=== PATIENT | male | born 1960 | race Caucasian/White ===

== ENCOUNTER 2018-07-18 08:34 | Emergency (ER) | payer MEDICARE, BC ==
[~2018-07-18] VITALS: Ht 177.8 cm; Wt 40.9 kg
[~2018-07-18 08:34] MED LIST: ONDA8TAB9 PO
[2018-07-18] MEDS ORDERED: TETanus/Pertussis (Acell)/Diphther VAC/PF (Tdap-Adult) 0.5ml syringe IM ONE (09:35)
[2018-07-18] MEDS ORDERED: LIDOcaine 1% w/epiNEPHrine 1:200,000 30ml vial IM ONE (09:35)
[2018-07-18] MEDS ORDERED: AMOX-422 PO (09:41)
[2018-07-18 11:44] VITALS: BP 116/83
== END 2018-07-18 11:42 | disposition home or self-care (01) ==
LOC: ER 08:35
DX: S62.636A Displaced fracture of distal phalanx of right little finger, initial encounter for closed fracture (principal); S61.216A Laceration without foreign body of right little finger without damage to nail, initial encounter; S81.832A Puncture wound without foreign body, left lower leg, initial encounter; S80.812A Abrasion, left lower leg, initial encounter; G89.29 Other chronic pain; Z98.890 Other specified postprocedural states; Z88.8 Allergy status to other drugs, medicaments and biological substances; Z79.899 Other long term (current) drug therapy; W54.0XXA Bitten by dog, initial encounter; Y93.89 Activity, other specified; Y92.89 Other specified places as the place of occurrence of the external cause; Y99.8 Other external cause status
CPT/HCPCS: 12001; 73140; 90471; 90715; 99283; J3490

== ENCOUNTER 2019-01-27 12:45 | Inpatient (IN) | payer MEDICARE, BC ==
[~2019-01-27] VITALS: Ht 177.8 cm; Wt 90.7 kg
[~2019-01-27 12:45] MED LIST changes: +BACL20TA7 PO; +LORA1TAB PO; +MECL12.584 PO; +MIRT30TA8 PO; +ONDA8TAB12 PO; -ONDA8TAB9 PO
[2019-02-01] MEDS ORDERED: ATOR40TA PO (11:34)
[2019-02-01] MEDS ORDERED: VALP250C44 PO (11:34)
[2019-02-01] MEDS ORDERED: OXYC-150 PO (11:34)
[2019-02-01 11:45] LABS: BASOPHILS % (AUTO) 0.6 % (0-1); EOSINOPHILS # (AUTO) 0.2 X10'3 (0-0.9); EOSINOPHILS % (AUTO) 3.6 % (0-6); LYMPHOCYTES # (AUTO) 0.7 X10'3 (1.1-4.8); LYMPHOCYTES % (AUTO) 15.2 % (21-51); MEAN CORPUSCULAR HEMOGLOBIN 31.9 PG (27.0-31.0); MEAN CORPUSCULAR HGB CONC 33.5 g/dL (33.0-36.5); MEAN CORPUSCULAR VOLUME 95.3 FL (78-98); MEAN PLATELET VOLUME 6.6 FL (7.4-10.4); MONOCYTES # (AUTO) 0.5 X10'3 (0-0.9); MONOCYTES % (AUTO) 10.7 % (2-12); NEUTROPHILS # (AUTO) 3.4 X10'3 (1.8-7.7); NEUTROPHILS % (AUTO) 69.9 % (42-75); PRE OP HEMATOCRIT 39.7 % (42.0-52.0); PRE OP HEMOGLOBIN 13.3 g/dL (14.0-17.9); PRE OP PLATELET COUNT 202 X10'3 (140-440); RED BLOOD COUNT 4.16 X10'6 (4.70-6.10); RED CELL DISTRIBUTION WIDTH 14.8 % (11.5-14.5)
[2019-02-01 12:02] LABS: ALBUMIN 3.8 G/DL (3.4-5.0); ALBUMIN/GLOBULIN RATIO 1.1 (1.1-1.5); ALKALINE PHOSPHATASE 56 IU/L (46-116); BLOOD UREA NITROGEN 15 MG/DL (7-18); BUN/CREATININE RATIO 16.7 (5.4-32.0); CALCIUM 8.9 MG/DL (8.5-10.1); CHLORIDE 105 MMOL/L (99-107); PRE OP ALT 20 U/L (30-65); PRE OP ANION GAP 7 (8-16); PRE OP AST 14 U/L (10-37); PRE OP BILIRUB, TOTAL 0.6 MG/DL (0.0-1.0); PRE OP GLUCOSE 83 MG/DL (70-104); PRE OP POTASSIUM 4.1 MMOL/L (3.4-5.1); PRE OP SODIUM 142 MMOL/L (135-145); TOTAL CARBON DIOXIDE 29.9 MMOL/L (24-32); TOTAL PROTEIN 7.4 G/DL (6.4-8.2); eGFR 86 ML/MIN
[2019-02-06] MEDS ORDERED: TRAZ-219 PO (10:18)
[2019-02-07] MEDS ORDERED: FLO0.4C PO (14:23)
[2019-02-09] MEDS ORDERED: VALP250C3 PO (11:54)
[2019-02-10] VITALS (13 sets, daily range): BP systolic 11–142; BP diastolic 65–103
[2019-02-10] MEDS ORDERED: tranexamic acid inj. 900 MG in normal saline 100ml IV soln 100 ML IV ONE ×5 (10:00→23:00)
[2019-02-10] MEDS ORDERED: ringers solution, lacted 1,000 ML IV SCH ×2 (10:00→18:07)
[2019-02-10] MEDS ORDERED: cefazolin/dext.iso 2gm/100ml 100 ML IV ONE (10:00)
[2019-02-10] MEDS ORDERED: vancomycin inj 1,500 MG in normal saline 300ml IV soln IV ONE (10:00)
[2019-02-10] MEDS ORDERED: famotidine 20mg tablet PO ONE (10:00)
[2019-02-10] MEDS ORDERED: diazepam 5mg tablet PO ONE (11:30)
[2019-02-10] MEDS ORDERED: ROPIVAcaine 0.5% (5mg/ml) 30ml vial ONE (16:06)
[2019-02-10] MEDS ORDERED: ketorolac trometh. 30mg/ml inj. ONE (16:06)
[2019-02-10] MEDS ORDERED: fentaNYL/PF 50MCG/1 ML 2ML syringe ONE ×2 (16:11→17:42)
[2019-02-10] MEDS ORDERED: MIDAZolam 5mg/5ml vial ONE (16:11)
[2019-02-10] MEDS ORDERED: propofol inj 20 ML IV ONE (16:13)
[2019-02-10] MEDS ORDERED: LIDOcaine 1%/PF 5ML 10 MG/ML VIAL ONE (16:13)
[2019-02-10] MEDS ORDERED: rocuronium 10mg/ml inj IV ONE (16:13)
[2019-02-10] MEDS ORDERED: sevoflurane 250ml liquid IH ONE (16:30)
[2019-02-10] MEDS ORDERED: ketamine 50mg/5ml syringe ONE (17:47)
[2019-02-10] MEDS ORDERED: phenylephrine 10mg/ml inj. ONE (18:01)
[2019-02-10] MEDS ORDERED: ondansetron/PF 4mg/2ml inj ONE ×2 (18:01→19:49)
[2019-02-10] MEDS ORDERED: dexamethasone sod phosphate 4mg/ml inj. ONE (18:01)
[2019-02-10] MEDS ORDERED: neostigmine methylsulfate 1 MG/ML 10ml vial ONE (18:01)
[2019-02-10] MEDS ORDERED: ePHEDrine 50MG/ML INJ. ONE (18:01)
[2019-02-10] MEDS ORDERED: ROPIVAcaine 0.5% (5mg/ml) 30ml vial IJ ONE (18:01)
[2019-02-10] MEDS ORDERED: glycopyrrolate 0.2mg/ml inj ONE (18:01)
[2019-02-10] MEDS ORDERED: ketorolac trometh. 30mg/ml inj. IM ONE (18:02)
[2019-02-10] MEDS ORDERED: morphine 4 MG/ML inj SYRINge IV PRN ×2 (18:10)
[2019-02-10] MEDS ORDERED: ondansetron/PF 4mg/2ml inj IV PRN (18:10)
[2019-02-10] MEDS ORDERED: meperidine/PF 25mg/ml syringe IV PRN ×3 (18:10)
[2019-02-10] MEDS ORDERED: ROPIVAcaine 0.2% (10 MG/5 ML) BOLUS INJECTION INTERSCALE PRN (18:10)
[2019-02-10] MEDS ORDERED: proCHLORperazine 10 MG/2 ml inj IV PRN (18:10)
[2019-02-10] MEDS ORDERED: acetaminophen 325mg tablet PO PRN (19:40)
[2019-02-10] MEDS ORDERED: magnesium hydroxide 30ml (MOM) UD suspension PO PRN (19:40)
[2019-02-10] MEDS ORDERED: diphenhydrAMINE 25mg capsule PO PRN ×2 (19:40)
[2019-02-10] MEDS ORDERED: oxyCODONE IR 5mg (immed. release) tablet PO PRN (19:40)
[2019-02-10] MEDS ORDERED: LORazepam 1 MG tablet PO PRN (19:40)
[2019-02-10] MEDS ORDERED: ONDANSETRON HCL 8 MG PO PRN (19:40)
[2019-02-10] MEDS ORDERED: bisacodyl 10mg suppository rectal RC PRN (19:40)
[2019-02-10] MEDS ORDERED: HYDROmorphone 1 mg/ml syringe IV PRN (19:40)
--- NOTE | 2019-02-10 19:52 | NUR ---
Received from OR via , accompanied by Anesthesiologist DR JUNG and report given by Anesthesiolgist. AWAKE AND ALPA PAIN. VITALS STABLE. C/O NAUSEA WILL MEDICATE. DRESSING DI. UNABLE TO MOVE RUE. SIMPLE SLING TO RUE. FINGERS WARM AND PINK.
[2019-02-10] MEDS ORDERED: vancomycin/NS 1 GM ADD-VANTAGE 250 ML IV SCH (20:00)
--- NOTE | 2019-02-10 20:27 | NUR ---
Patient in room PAS IN 900. I have received report from MARY Pham and had the opportunity to ask questions and assume patient care.
--- NOTE | 2019-02-10 20:42 | NUR ---
Report called to receiving nurse. Transferred via BED Belongings . Special Issues communicated to receiving nurse. AWAKE AND ORIENTED. VITALS STABLE. DRESSING DI. TO ORTHO RM 4024B AT THIS TIME.
[2019-02-10] MEDS: sennosides 8.6mg tablet PO SCH (21:00)
[2019-02-10] MEDS: traZODone 50mg tablet PO SCH (21:00)
[2019-02-10] MEDS: ROPIVAcaine 0.2%/PF PUMP/bolus 550 ML INTERSCALE SCH (21:00)
[2019-02-10] MEDS: oxyCODONE IR 5mg (immed. release) tablet PO PRN (21:11)
[2019-02-10] MEDS: valproic acid 250mg capsule PO SCH (21:13)
[2019-02-10] MEDS: acetaminophen 325mg tablet PO SCH (21:14)
[2019-02-10] MEDS: mirtazapine 15mg tablet PO SCH (21:14)
[2019-02-10] MEDS: baclofen 10mg tablet PO SCH (21:15)
[2019-02-10] MEDS: atorvastatin 20mg tablet PO SCH (21:15)
[2019-02-10] MEDS: meclizine 12.5mg tablet PO SCH (21:15)
[2019-02-10] MEDS: potassium cl 20mEq in 1/2 NS 1,000 ML IV SCH (21:21)
[2019-02-11] VITALS (7 sets, daily range): BP systolic 114–158; BP diastolic 68–89
[2019-02-11] MEDS: ceFAZolin 1GM/D5W- ADD-VANTAGE 50 ML IV SCH ×2 (00:02→07:30)
[2019-02-11] MEDS: oxyCODONE IR 5mg (immed. release) tablet PO PRN ×6 (01:17→23:14)
[2019-02-11] MEDS: acetaminophen 325mg tablet PO SCH ×4 (01:18→20:00)
[2019-02-11] MEDS: potassium cl 20mEq in 1/2 NS 1,000 ML IV SCH ×3 (03:38→16:42)
[2019-02-11 04:34] LABS: BASOPHILS % (AUTO) 0.1 % (0-1); EOSINOPHILS % (AUTO) 0 % (0-6); HEMATOCRIT 34.4 % (42.0-52.0); HEMOGLOBIN 11.7 g/dl (14.0-17.9); LYMPHOCYTES # (AUTO) 0.4 X10'3 (1.1-4.8); LYMPHOCYTES % (AUTO) 4.6 % (21-51); MEAN CORPUSCULAR HEMOGLOBIN 32.3 PG (27.0-31.0); MEAN CORPUSCULAR HGB CONC 33.9 g/dL (33.0-36.5); MEAN CORPUSCULAR VOLUME 95.2 FL (78-98); MONOCYTES # (AUTO) 0.5 X10'3 (0-0.9); MONOCYTES % (AUTO) 6.7 % (2-12); NEUTROPHILS # (AUTO) 7.1 X10'3 (1.8-7.7); NEUTROPHILS % (AUTO) 88.6 % (42-75); PLATELET COUNT 151 X10'3 (140-440); RED BLOOD COUNT 3.61 X10'6 (4.70-6.10); RED CELL DISTRIBUTION WIDTH 14.7 % (11.5-14.5)
[2019-02-11 04:44] LABS: ANION GAP 6 (8-16); CHLORIDE 106 MMOL/L (99-107); SODIUM 139 MMOL/L (135-145); TOTAL CARBON DIOXIDE 27.2 MMOL/L (24-32)
--- NOTE | 2019-02-11 06:35 | NUR ---
Pt. used UQ pump Ropivacaine 0.2 % bolus 8 times self administrate for 12 h .His pain was down to 4 from 8 .We will continue with pt. care.
[2019-02-11] MEDS ORDERED: aspirin 325mg tablet ONE (07:25)
[2019-02-11] MEDS: tamsulosin 0.4mg capsule PO SCH (07:29)
[2019-02-11] MEDS: valproic acid 250mg capsule PO SCH ×2 (07:29→20:42)
[2019-02-11] MEDS: baclofen 10mg tablet PO SCH ×3 (07:29→20:44)
[2019-02-11] MEDS: meclizine 12.5mg tablet PO SCH ×3 (07:29→20:43)
[2019-02-11] MEDS: aspirin 325mg tablet PO SCH (07:30)
--- NOTE | 2019-02-11 08:21 | NUR ---
Pt. used UQ pump Ropivacaine 0.2 % bolus X1 TIME self administrate
[2019-02-11] MEDS: HYDROmorphone inj. 0.5 MG/0.5 ML DISP.SYRIN IV PRN ×3 (08:50→17:44)
--- NOTE | 2019-02-11 11:03 | NUR ---
Pt. used UQ pump Ropivacaine 0.2 % bolus X3 TIME self administrate
[2019-02-11] MEDS: ondansetron/PF 4mg/2ml inj IV PRN ×3 (15:03→21:38)
--- NOTE | 2019-02-11 15:21 | NUR ---
Pt. used UQ pump Ropivacaine 0.2 % bolus X2 TIME self administrate , CONT RATE INCREASED TO 14ML/HR
--- NOTE | 2019-02-11 18:34 | NUR ---
Patient in room ORTHO 4024. I have received report from Heather HERNANDEZ and had the opportunity to ask questions and assume patient care.
[2019-02-11] MEDS: atorvastatin 20mg tablet PO SCH (20:42)
[2019-02-11] MEDS: traZODone 50mg tablet PO SCH (20:43)
[2019-02-11] MEDS: mirtazapine 15mg tablet PO SCH (20:43)
[2019-02-11] MEDS: sennosides 8.6mg tablet PO SCH (20:43)
[2019-02-12] MEDS: acetaminophen 325mg tablet PO SCH ×3 (02:33→13:40)
[2019-02-12] MEDS: oxyCODONE IR 5mg (immed. release) tablet PO PRN ×3 (03:27→11:59)
[2019-02-12 06:00] VITALS: BP 129/79
--- NOTE | 2019-02-12 06:25 | NUR ---
Patient in room ORTHO 4024. I have received report from MARY Suazo and had the opportunity to ask questions and assume patient care.
--- NOTE | 2019-02-12 06:28 | NUR ---
Problems reprioritized. Patient report given, questions answered & plan of care reviewed with BRANDON HERNANDEZ.
[2019-02-12 07:36] LABS: BASOPHILS % (AUTO) 0.1 % (0-1); EOSINOPHILS % (AUTO) 0 % (0-6); HEMATOCRIT 32.2 % (42.0-52.0); HEMOGLOBIN 10.9 g/dl (14.0-17.9); LYMPHOCYTES # (AUTO) 0.6 X10'3 (1.1-4.8); LYMPHOCYTES % (AUTO) 5.7 % (21-51); MEAN CORPUSCULAR HEMOGLOBIN 32.1 PG (27.0-31.0); MEAN CORPUSCULAR HGB CONC 33.8 g/dL (33.0-36.5); MEAN CORPUSCULAR VOLUME 95.1 FL (78-98); MEAN PLATELET VOLUME 7.3 FL (7.4-10.4); MONOCYTES # (AUTO) 1.4 X10'3 (0-0.9); MONOCYTES % (AUTO) 13.6 % (2-12); NEUTROPHILS # (AUTO) 8.1 X10'3 (1.8-7.7); NEUTROPHILS % (AUTO) 80.6 % (42-75); PLATELET COUNT 135 X10'3 (140-440); RED BLOOD COUNT 3.39 X10'6 (4.70-6.10); RED CELL DISTRIBUTION WIDTH 15.1 % (11.5-14.5); WHITE BLOOD COUNT 10.1 X10'3 (4.5-11.0)
[2019-02-12] MEDS: meclizine 12.5mg tablet PO SCH ×2 (07:41→13:37)
[2019-02-12] MEDS: valproic acid 250mg capsule PO SCH (07:41)
[2019-02-12] MEDS: tamsulosin 0.4mg capsule PO SCH (07:41)
[2019-02-12] MEDS: aspirin 325mg tablet PO SCH (07:42)
[2019-02-12] MEDS: baclofen 10mg tablet PO SCH ×2 (07:42→13:37)
[2019-02-12 10:00] VITALS: BP 115/67
[2019-02-12] MEDS: ROPIVAcaine 0.2%/PF PUMP/bolus 550 ML INTERSCALE SCH (12:40)
--- NOTE | 2019-02-12 14:00 | NUR ---
Received discharge orders from Dr. Black. IV dc'd RFA with cannula intact. No redness/swelling at insertion site. Applied bandaid over insertion site. Instructed pt on post op instructions. Pt has follow up appt with Dr. Black in one week. Instructed pt on administration of Ropivicaine. Ropivicaine refilled by Pharmacy prior to pt discharge. Pt transported via w/c to private vehicle for discharge.
[2019-02-12] MEDS ORDERED: acetaminophen 325mg tablet PO PRN (19:40)
== END 2019-02-12 14:25 | disposition home or self-care (01) | DRG 483 ==
LOC: EDSTATUS 01-30 14:00 → PAS IN 02-10 10:33 → EDSTATUS 02-10 12:45 → ORTHO 4S 02-10 20:39
PROVIDERS: ADMIT Orthopaedic Surgery; ATTEND Orthopaedic Surgery
PROC: 0RPJ0JZ Removal of Synthetic Substitute from Right Shoulder Joint, Open Approach (ICD-10-PCS; 2019-02-10)
PROC: 0RRJ0JZ Replacement of Right Shoulder Joint with Synthetic Substitute, Open Approach (ICD-10-PCS; principal; 2019-02-10 16:20)
DX: M75.121 Complete rotator cuff tear or rupture of right shoulder, not specified as traumatic (principal); M75.01 Adhesive capsulitis of right shoulder; M19.011 Primary osteoarthritis, right shoulder; Z96.611 Presence of right artificial shoulder joint; G89.29 Other chronic pain
CPT/HCPCS: 36415; 80051; 80053; 82948; 85025; 87070; 87081; 93005; 97110; 97116; 97161; 97530; A4215; A4565; A4618; A7000; C1776; G0378; J0690; J0780; J1100; J1170; J1885; J2250; J2370; J2405; J2704; J2710; J2795; J3010; J3370; J3480; J3490; J7120; J8597

== ENCOUNTER 2019-02-07 13:42 | Emergency (ER) | payer MEDICARE, BC ==
[~2019-02-07] VITALS: Ht 188 cm; Wt 98.0 kg
[~2019-02-07 13:42] MED LIST changes: +ATOR40TA PO; +OXYC-150 PO; +TAMSULOSIN PO; +TRAZ-219 PO; +VALP250C44 PO
[2019-02-07] MEDS ORDERED: normal saline 1000ml 1,000 ML IV ONE ×2 (14:15)
[2019-02-07] MEDS ORDERED: FLO0.4C PO (14:23)
[2019-02-07 14:26] LABS: BASOPHILS % (AUTO) 0.5 % (0-1); EOSINOPHILS # (AUTO) 0.1 X10'3 (0-0.9); EOSINOPHILS % (AUTO) 2.3 % (0-6); HEMOGLOBIN 13.9 g/dl (14.0-17.9); LYMPHOCYTES # (AUTO) 0.6 X10'3 (1.1-4.8); MEAN CORPUSCULAR HEMOGLOBIN 32.2 PG (27.0-31.0); MEAN CORPUSCULAR HGB CONC 33.8 g/dL (33.0-36.5); MEAN CORPUSCULAR VOLUME 95.2 FL (78-98); MEAN PLATELET VOLUME 6.6 FL (7.4-10.4); MONOCYTES # (AUTO) 0.3 X10'3 (0-0.9); MONOCYTES % (AUTO) 7.2 % (2-12); NEUTROPHILS # (AUTO) 3.1 X10'3 (1.8-7.7); PLATELET COUNT 181 X10'3 (140-440); RED BLOOD COUNT 4.31 X10'6 (4.70-6.10); RED CELL DISTRIBUTION WIDTH 14.6 % (11.5-14.5); WHITE BLOOD COUNT 4.1 X10'3 (4.5-11.0)
[2019-02-07 14:41] LABS: CLARITY,URINE CLEAR (Clear); COLOR,URINE YELLOW (Yellow); GLUCOSE, URINE NEGATIVE (Neg); KETONES,URINE NEGATIVE (Neg); LEUKOCYTE ESTERASE ,URINE NEGATIVE (Neg); NITRITES, URINE NEGATIVE (Neg); OCCULT BLOOD,URINE NEGATIVE (Neg); PH,URINE 6.5 (4.8-8.0); PROTEIN,URINE NEGATIVE (Neg); UROBILINOGEN,URINE 0.2 E.U/dL (0.2-1.0)
[2019-02-07 14:43] LABS: UA COLLECTION TYPE URINAL
[2019-02-07 14:44] LABS: ALANINE AMINOTRANSFERASE 20 U/L (12-78); ALBUMIN 3.8 G/DL (3.4-5.0); ALKALINE PHOSPHATASE 57 IU/L (46-116); ANION GAP 6 (8-16); ASPARTATE AMINO TRANSFERASE 13 U/L (10-37); BILIRUBIN,TOTAL 0.6 MG/DL (0.1-1.0); BLOOD UREA NITROGEN 10 MG/DL (7-18); BUN/CREATININE RATIO 10.2 (5.4-32.0); CHLORIDE 105 MMOL/L (99-107); CREATININE 0.98 MG/DL (0.60-1.10); GLUCOSE 96 MG/DL (70-104); POTASSIUM 3.6 MMOL/L (3.5-5.1); SODIUM 143 MMOL/L (135-145); TOTAL CARBON DIOXIDE 32.1 MMOL/L (24-32); TOTAL PROTEIN 7.6 G/DL (6.4-8.2); eGFR 78 ML/MIN
--- NOTE | 2019-02-07 15:10 | NUR ---
SPOKE WITH FAMILY ABOUT MEDICATIONS: PATIENT LITERALLY HAS A GROCERY BAG FULL OF HIS MEDICATIONS. HIS STATES THAT SHE KEEPS HIS PERCOCET LOCKED UP. PATIENT IS ON THE FOLLOWING MEDICATIONS THAT HAVE THE POTENTIAL FOR SEDATION: ATIVAN (WHICH IS EMPTY AND HAS MULTIPLE DIFFERENT PILLS IN IT), PERCOCET, BACLOFEN, AND MIRTAZIPIME, AND RECENTLY HAD TRAZADONE 100 MG ADDED AND JAILENE WAS TAKING 01/07 [id number]=661 MG OF TRAZADONE. APOLINAR CHANDLER INFORMED
--- NOTE | 2019-02-07 16:46 | NUR ---
PT IS VERY DROWSY AND FALLS ASLEEP QUICKLY. PT WILL BE DISCHARGED WHEN HE IS AWAKE AND ANSWERS QUESTIONS WITHOUT FALLING ASLEEP.
--- NOTE | 2019-02-07 18:41 | NUR ---
PATIENT IS STILL VERY DROWSY, HE IS ORIENTED WHEN HE WAKES UP, BUT RAPIDLY FALLS ASLEEP. NO ORDERS FOR NARCAN OR ROMAZICON.
--- NOTE | 2019-02-07 19:00 | NUR ---
Pt moderately somnolent. He responds to touch without much stimulation. Pt AOX2. Reassurance provided who was concerned because of sounds pt made while breathing. NC had been moved to mouth ar startm of shift d/t pt being a mouth breather when asleep.
--- NOTE | 2019-02-07 19:47 | NUR ---
complete linen change by MARY Arthur
--- NOTE | 2019-02-07 19:48 | NUR ---
PATIENT INCONTINENT OF A EXTRA LARGE AMOUNT OF URINE, CHANGED GOWN, LINEN, WARM BLANKET APPLIED
--- NOTE | 2019-02-07 19:54 | NUR ---
Pt responding more readily to audible noises and staying awake longer. AOX3.
--- NOTE | 2019-02-07 21:34 | NUR ---
PATIENT SAT HIMSELF UP IN BED AND GOT OUT OF BED WITHOUT ASSISTANCE: 2 PERSON STANDBY. PATIENT AMBULATED ABOUT 150 FEET WITH STANDBY ASSIST. PATIENT WALKED AND PASSED DR MACIAS AND SPOKE WITH DR MACIAS. DR MACIAS STATED THAT THE PATIENT IS OK FOR DISCHARGE
[2019-02-07 22:01] VITALS: BP 151/92
[2019-02-08 14:16] LABS: ABG BASE EXCESS 0.5 mmol/L (-2.0-3.0); ABG HCO3 25.8 mmol/L (22.0-26.0); ABG OXYGEN SATURATION 97.2 % (95-98); ABG PCO2 (T) 43.8 mmHg (35.0-45.0); ABG PH (T) 7.388 (7.350-7.450); ALLEN'S TEST Positive; FCOHb 0.7 % (0.5-1.5); FLOW 2 L/min; FO2Hb 96.5 % (94-100); RESPIRATORY RATE (OBSERVED) 16 b/min; TOTAL HEMOGLOBIN 13.5 G/dl (14.0-17.9)
== END 2019-02-07 22:03 | disposition home or self-care (01) ==
LOC: ER 13:44
DX: T40.602A Poisoning by unspecified narcotics, intentional self-harm, initial encounter (principal); R06.89 Other abnormalities of breathing; G89.4 Chronic pain syndrome; R41.82 Altered mental status, unspecified; Z98.890 Other specified postprocedural states; Z79.899 Other long term (current) drug therapy; Z91.09 Other allergy status, other than to drugs and biological substances; Y92.89 Other specified places as the place of occurrence of the external cause
CPT/HCPCS: 36415; 36600; 70450; 71045; 80053; 81003; 82803; 84484; 85018; 85025; 93005; 96360; 96361; 99291; J7030

== ENCOUNTER 2019-08-29 14:49 | Outpatient (CLI) | payer MEDICARE, BC ==
[~2019-08-29] VITALS: Ht 177.8 cm; Wt 99.8 kg
[~2019-08-29 14:49] MED LIST changes: +FLO0.4C PO; +MECL-184 PO; -MECL12.584 PO; -ONDA8TAB12 PO; +ONDA8TAB65 PO; -TAMSULOSIN PO; -TRAZ-219 PO; +TRAZ-256 PO; +VALP250C3 PO
[2019-08-29] MEDS ORDERED: ACET-1008 PO (15:54)
[2019-08-29 16:18] LABS: BASOPHILS % (AUTO) 0.6 % (0-1); EOSINOPHILS # (AUTO) 0.3 X10'3 (0-0.9); EOSINOPHILS % (AUTO) 6.1 % (0-6); LYMPHOCYTES # (AUTO) 0.9 X10'3 (1.1-4.8); LYMPHOCYTES % (AUTO) 19.9 % (21-51); MEAN CORPUSCULAR HEMOGLOBIN 31.7 PG (27.0-31.0); MEAN CORPUSCULAR HGB CONC 32.5 g/dL (33.0-36.5); MEAN CORPUSCULAR VOLUME 97.4 FL (78-98); MEAN PLATELET VOLUME 6.9 FL (7.4-10.4); MONOCYTES # (AUTO) 0.5 X10'3 (0-0.9); MONOCYTES % (AUTO) 11.6 % (2-12); NEUTROPHILS # (AUTO) 2.8 X10'3 (1.8-7.7); NEUTROPHILS % (AUTO) 61.8 % (42-75); PRE OP PLATELET COUNT 179 X10'3 (140-440); RED CELL DISTRIBUTION WIDTH 14.8 % (11.5-14.5)
[2019-08-29 16:30] LABS: ALBUMIN 3.7 G/DL (3.4-5.0); ALBUMIN/GLOBULIN RATIO 1.2 (1.1-1.5); ALKALINE PHOSPHATASE 49 IU/L (46-116); BLOOD UREA NITROGEN 20 MG/DL (7-18); BUN/CREATININE RATIO 16.8 (5.4-32.0); CALCIUM 8.8 MG/DL (8.5-10.1); CHLORIDE 107 MMOL/L (99-107); CREATININE 1.19 MG/DL (0.60-1.10); PRE OP ALT 29 U/L (30-65); PRE OP ANION GAP 3 (8-16); PRE OP AST 22 U/L (10-37); PRE OP BILIRUB, TOTAL 0.4 MG/DL (0.0-1.0); PRE OP GLUCOSE 101 MG/DL (70-104); PRE OP SODIUM 143 MMOL/L (135-145); TOTAL CARBON DIOXIDE 33.1 MMOL/L (24-32); TOTAL PROTEIN 6.9 G/DL (6.4-8.2); eGFR 62 ML/MIN
[2019-09-04] MEDS ORDERED: ringers solution, lacted 1,000 ML IV SCH (05:00)
[2019-09-04] MEDS ORDERED: famotidine 20mg tablet PO ONE (05:30)
[2019-09-04] MEDS ORDERED: ceFAZolin 2gm in dextrose, iso 50 ML IV ONE (05:30)
== END 2019-08-29 23:59 | disposition home or self-care (01) ==
LOC: PRE-OP 14:49 → EDSTATUS 09-04 11:45
PROVIDERS: ATTEND Orthopaedic Surgery Hand Surgery
DX: Z01.818 Encounter for other preprocedural examination (principal); S66.821D Laceration of other specified muscles, fascia and tendons at wrist and hand level, right hand, subsequent encounter; M12.50 Traumatic arthropathy, unspecified site; X58.XXXD Exposure to other specified factors, subsequent encounter; Z11.59 Encounter for screening for other viral diseases; Z91.048 Other nonmedicinal substance allergy status
CPT/HCPCS: 36415; 80053; 85025; U0003; J7120

== ENCOUNTER 2019-11-10 06:24 | Day surgery (SDC) | payer MEDICARE, BC ==
[2019-11-03 15:29] LABS: BASOPHILS % (AUTO) 0.5 % (0-1); EOSINOPHILS # (AUTO) 0.1 X10'3 (0-0.9); EOSINOPHILS % (AUTO) 2.5 % (0-6); LYMPHOCYTES # (AUTO) 0.9 X10'3 (1.1-4.8); LYMPHOCYTES % (AUTO) 16.6 % (21-51); MEAN CORPUSCULAR HEMOGLOBIN 31.6 PG (27.0-31.0); MEAN CORPUSCULAR HGB CONC 32.7 g/dL (33.0-36.5); MEAN CORPUSCULAR VOLUME 96.6 FL (78-98); MEAN PLATELET VOLUME 6.7 FL (7.4-10.4); MONOCYTES # (AUTO) 0.6 X10'3 (0-0.9); MONOCYTES % (AUTO) 11.4 % (2-12); NEUTROPHILS # (AUTO) 3.6 X10'3 (1.8-7.7); PRE OP HEMATOCRIT 36.5 % (42.0-52.0); PRE OP HEMOGLOBIN 11.9 g/dL (14.0-17.9); PRE OP PLATELET COUNT 192 X10'3 (140-440); RED BLOOD COUNT 3.78 X10'6 (4.70-6.10); RED CELL DISTRIBUTION WIDTH 15.1 % (11.5-14.5)
[2019-11-03 15:42] LABS: ALBUMIN 3.5 G/DL (3.4-5.0); ALBUMIN/GLOBULIN RATIO 0.9 (1.1-1.5); ALKALINE PHOSPHATASE 44 IU/L (46-116); BLOOD UREA NITROGEN 15 MG/DL (7-18); BUN/CREATININE RATIO 14.2 (5.4-32.0); CALCIUM 8.5 MG/DL (8.5-10.1); CHLORIDE 106 MMOL/L (99-107); CREATININE 1.06 MG/DL (0.60-1.10); PRE OP ALT 16 U/L (30-65); PRE OP ANION GAP 7 (8-16); PRE OP AST 12 U/L (10-37); PRE OP BILIRUB, TOTAL 0.5 MG/DL (0.0-1.0); PRE OP GLUCOSE 82 MG/DL (70-104); PRE OP POTASSIUM 3.6 MMOL/L (3.4-5.1); PRE OP SODIUM 142 MMOL/L (135-145); TOTAL CARBON DIOXIDE 28.6 MMOL/L (24-32); TOTAL PROTEIN 7.4 G/DL (6.4-8.2); eGFR 71 ML/MIN
[~2019-11-10] VITALS: Ht 175.3 cm; Wt 9.0 kg
[2019-11-10] VITALS (9 sets, daily range): BP systolic 122–144; BP diastolic 66–95
[~2019-11-10 06:24] MED LIST changes: +CYAN250010 PO; +GLUC-95 PO; -TRAZ-256 PO; +cefazolin/dext.iso 2gm/50ml 50 ML IV ONE; +famotidine 20mg tablet PO ONE; +ringers solution, lacted 1,000 ML IV SCH
[2019-11-10] MEDS ORDERED: LIDOcaine 1% 30ml preserv. free vial ONE (07:14)
[2019-11-10] MEDS ORDERED: ringers solution, lacted 1,000 ML IV SCH (07:16)
[2019-11-10] MEDS ORDERED: morphine 4 MG/ML inj SYRINge IV PRN (07:20)
[2019-11-10] MEDS ORDERED: meperidine/PF 25mg/ml syringe IV PRN ×3 (07:20)
[2019-11-10] MEDS ORDERED: ondansetron/PF 4mg/2ml inj IV PRN (07:20)
[2019-11-10] MEDS ORDERED: morphine 2 MG/ML inj. syringe IV PRN (07:20)
[2019-11-10] MEDS ORDERED: proCHLORperazine 10 MG/2 ml inj IV PRN (07:20)
[2019-11-10] MEDS ORDERED: BUPIVAcaine/PF 2.5 mg/ml (0.25%) 30ml vial ONE (08:24)
[2019-11-10] MEDS ORDERED: fentaNYL/PF 50MCG/1 ML 2ML syringe ONE (08:33)
[2019-11-10] MEDS ORDERED: midazolam 2 mg/2 ml injection ONE (08:33)
[2019-11-10] MEDS ORDERED: MIDAZolam 5mg/ml 2ml vial ONE (08:50)
[2019-11-10] MEDS ORDERED: ketorolac trometh. 30mg/ml inj. ONE (09:26)
--- NOTE | 2019-11-10 09:33 | NUR ---
Received from OR via [facility], accompanied by Anesthesiologist DR STEARNS and report given by Anesthesiologist. PT DROWSY, DENIES PAIN, RIGHT HAND W/BIAS DRSG COVERING INCISION/DRSG, CDI, FINGERS PWD, TAR POT MAN 1-2 SECONDS. Addendum: 11/10/19 at 1007 by Adriane Paul RN Amended: Links added.
--- NOTE | 2019-11-10 10:43 | NUR ---
PT UP ABLE TO AMBULATE, PT VOIDED, D/C INSTRUCTIONS GIVEN AND GONE OVER W/PT WHO VERBALIZED UNDERSTANDING, PT D/CD TO HOME VIA W/C TO PRIVATE VEHICLE W/O INCIDENT. Addendum: 11/10/19 at 1058 by Adriane Paul RN Amended: Links added.
[2019-11-10] MEDS ORDERED: BUPIVAcaine/PF 2.5mg/ml (0.25%) 10ml vial IJ ONE (12:43)
== END 2019-11-10 10:43 | disposition home or self-care (01) ==
LOC: PAS 06:24
PROVIDERS: ATTEND Orthopaedic Surgery Hand Surgery
DX: M20.031 Swan-neck deformity of right finger(s) (principal); M24.541 Contracture, right hand; Z79.899 Other long term (current) drug therapy; M17.11 Unilateral primary osteoarthritis, right knee; M19.011 Primary osteoarthritis, right shoulder; Z98.890 Other specified postprocedural states; Z91.048 Other nonmedicinal substance allergy status
CPT/HCPCS: 26860; 36415; 80053; 82948; 85025; 87635; C1713; J1885; J2001; J2250; J3010; J3490; A4215; A4618; A7000; J7120

== ENCOUNTER 2022-01-01 22:14 | Emergency (ER) | payer BC, MEDICARE, OTHER ==
[~2022-01-01] VITALS: Ht 170.2 cm; Wt 77.3 kg
[~2022-01-01 22:14] MED LIST changes: -MECL-184 PO; +MECL-231 PO; +MIRT-88 PO; -MIRT30TA8 PO; +ONDA-104 PO; -ONDA8TAB65 PO; -cefazolin/dext.iso 2gm/50ml 50 ML IV ONE; -famotidine 20mg tablet PO ONE; -ringers solution, lacted 1,000 ML IV SCH
[2022-01-01 22:39] LABS: BASOPHILS % (AUTO) 0.2 % (0-1); EOSINOPHILS # (AUTO) 0.1 X10'3 (0-0.9); EOSINOPHILS % (AUTO) 2.5 % (0-6); HEMATOCRIT 39.1 % (42.0-52.0); HEMOGLOBIN 13.2 g/dl (14.0-17.9); LYMPHOCYTES % (AUTO) 16.7 % (21-51); MEAN CORPUSCULAR HGB CONC 33.8 g/dL (33.0-36.5); MEAN CORPUSCULAR VOLUME 97.6 FL (78-98); MEAN PLATELET VOLUME 6.6 FL (7.4-10.4); MONOCYTES # (AUTO) 0.6 X10'3 (0-0.9); MONOCYTES % (AUTO) 10.2 % (2-12); NEUTROPHILS # (AUTO) 4.1 X10'3 (1.8-7.7); NEUTROPHILS % (AUTO) 70.4 % (42-75); PLATELET COUNT 171 X10'3 (140-440); RED BLOOD COUNT 4.01 X10'6 (4.70-6.10); RED CELL DISTRIBUTION WIDTH 13.7 % (11.5-14.5); WHITE BLOOD COUNT 5.8 X10'3 (4.5-11.0)
[2022-01-01 22:51] LABS: APTT 27 SECONDS (22-32)
[2022-01-01 22:52] LABS: ALANINE AMINOTRANSFERASE 21 U/L (12-78); ALBUMIN 3.7 G/DL (3.4-5.0); ALBUMIN/GLOBULIN RATIO 1.2 (1.1-1.5); ALKALINE PHOSPHATASE 49 IU/L (46-116); ANION GAP 13 (8-16); ASPARTATE AMINO TRANSFERASE 19 U/L (10-37); BILIRUBIN,TOTAL 0.5 MG/DL (0.1-1.0); BLOOD UREA NITROGEN 13 MG/DL (7-18); BUN/CREATININE RATIO 11.1 (5.4-32.0); CHLORIDE 103 MMOL/L (99-107); CREATININE 1.17 MG/DL (0.60-1.10); GLUCOSE 174 MG/DL (70-104); POTASSIUM 3.2 MMOL/L (3.5-5.1); SODIUM 142 MMOL/L (135-145); TOTAL CARBON DIOXIDE 26.5 MMOL/L (24-32); TOTAL PROTEIN 6.9 G/DL (6.4-8.2); eGFR 63 ML/MIN
[2022-01-01 22:56] LABS: VALPROATE 73 UG/ML (50-100)
--- NOTE | 2022-01-01 22:57 | NUR ---
Informed from pt that he took baclofen and percocet at 1300 today. Aside from that he took a depokote this morning and this afternoon because he thinks he forgot his dose last night. He has pin point pupils and will fall asleep when you stop talking to him.
[2022-01-01 23:09] LABS: CREATINE KINASE 126 U/L (39-308); MAGNESIUM 1.7 MG/DL (1.5-2.4); PHOSPHORUS 4.2 MG/DL (2.3-4.5)
[2022-01-01] MEDS ORDERED: normal saline 1000ML IV soln IVB ONE (23:30)
[2022-01-01] MEDS ORDERED: potassium Cl 20 mEq SR tablet PO ONE (23:30)
[2022-01-02 01:08] LABS: CLARITY,URINE CLEAR (Clear); GLUCOSE, URINE NEGATIVE (Neg); KETONES,URINE 15 mg/dl (Neg); LEUKOCYTE ESTERASE ,URINE NEGATIVE (Neg); NITRITES, URINE NEGATIVE (Neg); OCCULT BLOOD,URINE NEGATIVE (Neg); PH,URINE 5.5 (4.8-8.0); PROTEIN,URINE NEGATIVE (Neg); UROBILINOGEN,URINE 0.2 E.U/dL (0.2-1.0)
[2022-01-02 01:14] LABS: COLOR,URINE DARK YELLOW (Yellow); UA COLLECTION TYPE URINAL
[2022-01-02 01:15] LABS: URINE AMPHETAMINE SCREEN NEGATIVE (Neg); URINE BARBITUATE SCREEN NEGATIVE (Neg); URINE BENZODIAZEPINES SCREEN NEGATIVE (Neg); URINE CANNABINOID SCREEN POSITIVE (Neg); URINE COCAINE SCREEN NEGATIVE (Neg); URINE METHADONE SCREEN NEGATIVE (Neg); URINE OPIATE SCREEN POSITIVE (Neg); URINE PHENCYCLIDINE SCREEN NEGATIVE (Neg)
--- NOTE | 2022-01-02 05:30 | NUR ---
Patient ambulated to bathroom without difficulty, used cane per usual.
[2022-01-02 05:42] VITALS: BP 142/64
== END 2022-01-02 06:23 | disposition home or self-care (01) ==
LOC: ER 22:15
DX: R41.0 Disorientation, unspecified (principal); R53.1 Weakness; R11.0 Nausea; R42 Dizziness and giddiness; E78.00 Pure hypercholesterolemia, unspecified; K21.9 Gastro-esophageal reflux disease without esophagitis; G89.29 Other chronic pain; F32.A Depression, unspecified; Z87.11 Personal history of peptic ulcer disease; Z98.890 Other specified postprocedural states; Z88.8 Allergy status to other drugs, medicaments and biological substances; Z79.899 Other long term (current) drug therapy
CPT/HCPCS: 36415; 70450; 71045; 80053; 80164; 80305; 81003; 82140; 82550; 82948; 83735; 84100; 84484; 85025; 85610; 85730; 93005; 99285; J7030

== ENCOUNTER 2022-03-30 14:46 | Emergency (ER) | payer OTHER ==
[~2022-03-30] VITALS: Ht 177.8 cm; Wt 86.4 kg
[2022-03-30 15:25] LABS: BASOPHILS % (AUTO) 0.2 % (0-1); EOSINOPHILS # (AUTO) 0.1 X10'3 (0-0.9); EOSINOPHILS % (AUTO) 1.4 % (0-6); HEMATOCRIT 38.3 % (42.0-52.0); HEMOGLOBIN 12.7 g/dl (14.0-17.9); LYMPHOCYTES % (AUTO) 21.3 % (21-51); MEAN CORPUSCULAR HEMOGLOBIN 32.2 PG (27.0-31.0); MEAN CORPUSCULAR HGB CONC 33.3 g/dL (33.0-36.5); MEAN CORPUSCULAR VOLUME 96.8 FL (78-98); MEAN PLATELET VOLUME 6.4 FL (7.4-10.4); MONOCYTES # (AUTO) 0.6 X10'3 (0-0.9); MONOCYTES % (AUTO) 11.7 % (2-12); NEUTROPHILS # (AUTO) 3.1 X10'3 (1.8-7.7); NEUTROPHILS % (AUTO) 65.4 % (42-75); PLATELET COUNT 215 X10'3 (140-440); RED BLOOD COUNT 3.95 X10'6 (4.70-6.10); RED CELL DISTRIBUTION WIDTH 14.7 % (11.5-14.5); WHITE BLOOD COUNT 4.8 X10'3 (4.5-11.0)
[2022-03-30 15:45] LABS: ALANINE AMINOTRANSFERASE 27 U/L (12-78); ALBUMIN 4.4 G/DL (3.4-5.0); ALBUMIN/GLOBULIN RATIO 1.5 (1.1-1.5); ALKALINE PHOSPHATASE 54 IU/L (46-116); ANION GAP 7 (8-16); ASPARTATE AMINO TRANSFERASE 16 U/L (10-37); BILIRUBIN,TOTAL 1.1 MG/DL (0.1-1.0); BLOOD UREA NITROGEN 13 MG/DL (7-18); BUN/CREATININE RATIO 11.5 (5.4-32.0); CALCIUM 9.2 MG/DL (8.5-10.1); CHLORIDE 101 MMOL/L (99-107); CREATININE 1.13 MG/DL (0.60-1.10); GLUCOSE 127 MG/DL (70-104); POTASSIUM 3.3 MMOL/L (3.5-5.1); SODIUM 139 MMOL/L (135-145); TOTAL CARBON DIOXIDE 31.1 MMOL/L (24-32); TOTAL PROTEIN 7.4 G/DL (6.4-8.2); eGFR 65 ML/MIN
[2022-03-30 16:08] VITALS: BP 135/85
== END 2022-03-30 16:11 | disposition home or self-care (01) ==
LOC: ER 14:47
DX: I10 Essential (primary) hypertension (principal); E78.00 Pure hypercholesterolemia, unspecified; K21.9 Gastro-esophageal reflux disease without esophagitis; G89.29 Other chronic pain; M54.50 Low back pain, unspecified; Z91.09 Other allergy status, other than to drugs and biological substances; Z88.8 Allergy status to other drugs, medicaments and biological substances
CPT/HCPCS: 36415; 71045; 80053; 83880; 84484; 85025; 93005; 99285

== ENCOUNTER 2022-12-16 17:28 | Emergency (ER) | payer OTHER ==
[~2022-12-16] VITALS: Ht 177.8 cm; Wt 90.0 kg
[2022-12-16 17:32] VITALS: BP 147/83; PULSE 58; RESP 18; TEMP 98; O2SAT 98
[2022-12-16 18:06] LABS: BASOPHILS % (AUTO) 0.4 % (0-1); EOSINOPHILS # (AUTO) 0.3 X10'3 (0-0.9); HEMATOCRIT 36.8 % (42.0-52.0); HEMOGLOBIN 12.4 g/dl (14.0-17.9); LYMPHOCYTES # (AUTO) 1.2 X10'3 (1.1-4.8); LYMPHOCYTES % (AUTO) 24.5 % (21-51); MEAN CORPUSCULAR HGB CONC 33.8 g/dL (33.0-36.5); MEAN CORPUSCULAR VOLUME 97.7 FL (78-98); MEAN PLATELET VOLUME 6.8 FL (7.4-10.4); MONOCYTES # (AUTO) 0.6 X10'3 (0-0.9); MONOCYTES % (AUTO) 12.7 % (2-12); NEUTROPHILS # (AUTO) 2.8 X10'3 (1.8-7.7); NEUTROPHILS % (AUTO) 56.4 % (42-75); PLATELET COUNT 196 X10'3 (140-440); RED BLOOD COUNT 3.77 X10'6 (4.70-6.10); RED CELL DISTRIBUTION WIDTH 14.4 % (11.5-14.5); WHITE BLOOD COUNT 5.1 X10'3 (4.5-11.0)
[2022-12-16 18:21] LABS: ALANINE AMINOTRANSFERASE 32 U/L (12-78); ALBUMIN 3.7 G/DL (3.4-5.0); ALBUMIN/GLOBULIN RATIO 1.2 (1.1-1.5); ALKALINE PHOSPHATASE 47 IU/L (46-116); ANION GAP 2 (8-16); ASPARTATE AMINO TRANSFERASE 20 U/L (10-37); BILIRUBIN,TOTAL 0.7 MG/DL (0.1-1.0); BLOOD UREA NITROGEN 17 MG/DL (7-18); BUN/CREATININE RATIO 17.2 (10.0-20.0); CHLORIDE 104 MMOL/L (99-107); CREATININE 0.99 MG/DL (0.60-1.10); GLUCOSE 87 MG/DL (70-104); POTASSIUM 3.6 MMOL/L (3.5-5.1); SODIUM 141 MMOL/L (135-145); TOTAL CARBON DIOXIDE 35.1 MMOL/L (24-32); TOTAL PROTEIN 6.9 G/DL (6.4-8.2); eCRCL 78 ML/MIN; eGFR 76 ML/MIN
[2022-12-16 18:29] LABS: PRO BRAIN NATRIURETIC PEPTIDE 316 PG/ML (0-125)
== END 2022-12-16 18:00 | disposition left against medical advice (07) ==
LOC: ER 17:29
DX: R07.9 Chest pain, unspecified (principal); Z53.21 Procedure and treatment not carried out due to patient leaving prior to being seen by health care provider
CPT/HCPCS: 36415; 71045; 80053; 83880; 84484; 85025; 93005; 99281

== ENCOUNTER 2023-01-12 10:44 | Emergency (ER) | payer OTHER ==
[~2023-01-12] VITALS: Ht 177.8 cm; Wt 79.1 kg
[~2023-01-12 10:44] MED LIST changes: +ACET-2119 PO; +ASPI81TA53 PO; -BACL20TA7 PO; +CELE-193 PO; -CYAN250010 PO; +DICY10CA88 PO; +GABA300C PO; -GLUC-95 PO; +LOP25T PO; -LORA1TAB PO; -MECL-231 PO; +MIRT-140 PO; -MIRT-88 PO; +NAPR220T67 PO; +OXYC1TAB17 PO; +PANT40TA54 PO; +PREG100C PO; +SENN-283 PO; +SUCR1TAB PO; +TIZA4CAP PO; -VALP250C44 PO; +[UNRECOGNIZED DRUG - MIXTURE] TOP
[2023-01-12] MEDS ORDERED: morphine 4 MG/ML inj SYRINge IV ONE (13:40)
[2023-01-12 14:00] VITALS: TEMP 98.3
[2023-01-12 14:00] LABS: BASOPHILS # (AUTO) 0.1 X10'3 (0-0.2); BASOPHILS % (AUTO) 0.8 % (0-1); EOSINOPHILS # (AUTO) 0.3 X10'3 (0-0.9); EOSINOPHILS % (AUTO) 2.9 % (0-6); HEMATOCRIT 29.4 % (42.0-52.0); HEMOGLOBIN 9.8 g/dl (14.0-17.9); LYMPHOCYTES # (AUTO) 0.6 X10'3 (1.1-4.8); LYMPHOCYTES % (AUTO) 6.4 % (21-51); MEAN CORPUSCULAR HEMOGLOBIN 32.6 PG (27.0-31.0); MEAN CORPUSCULAR HGB CONC 33.4 g/dL (33.0-36.5); MEAN CORPUSCULAR VOLUME 97.4 FL (78-98); MEAN PLATELET VOLUME 6.5 FL (7.4-10.4); MONOCYTES # (AUTO) 0.8 X10'3 (0-0.9); NEUTROPHILS # (AUTO) 7.8 X10'3 (1.8-7.7); NEUTROPHILS % (AUTO) 81.9 % (42-75); PLATELET COUNT 452 X10'3 (140-440); RED BLOOD COUNT 3.02 X10'6 (4.70-6.10); WHITE BLOOD COUNT 9.5 X10'3 (4.5-11.0)
[2023-01-12] MEDS ORDERED: iohexol 350MG/ML 100ml bottle IV ONE (14:01)
[2023-01-12 14:13] LABS: APTT 29 SECONDS (22-32); PROTHROMBIN TIME 10.8 SECONDS (9.0-12.0)
[2023-01-12 14:18] LABS: ALANINE AMINOTRANSFERASE 26 U/L (12-78); ALBUMIN 3.6 G/DL (3.4-5.0); ALBUMIN/GLOBULIN RATIO 0.8 (1.1-1.5); ALKALINE PHOSPHATASE 107 IU/L (46-116); ANION GAP 8 (8-16); ASPARTATE AMINO TRANSFERASE 18 U/L (10-37); BILIRUBIN,TOTAL 0.8 MG/DL (0.1-1.0); BLOOD UREA NITROGEN 18 MG/DL (7-18); BUN/CREATININE RATIO 17.3 (10.0-20.0); CALCIUM 9.9 MG/DL (8.5-10.1); CHLORIDE 101 MMOL/L (99-107); CREATININE 1.04 MG/DL (0.60-1.10); GLUCOSE 105 MG/DL (70-104); POTASSIUM 4.2 MMOL/L (3.5-5.1); SODIUM 138 MMOL/L (135-145); TOTAL CARBON DIOXIDE 28.6 MMOL/L (24-32); TOTAL PROTEIN 7.9 G/DL (6.4-8.2); eCRCL 74 ML/MIN; eGFR 72 ML/MIN
[2023-01-12] MEDS ORDERED: OXYC-150 PO (15:48)
[2023-01-12 16:27] VITALS: BP 130/73; PULSE 69; RESP 18; O2SAT 99
== END 2023-01-12 16:30 | disposition home or self-care (01) ==
LOC: ER 10:45
DX: G89.18 Other acute postprocedural pain (principal); M54.9 Dorsalgia, unspecified; R79.1 Abnormal coagulation profile; R07.89 Other chest pain; G89.29 Other chronic pain; E78.00 Pure hypercholesterolemia, unspecified; K21.9 Gastro-esophageal reflux disease without esophagitis; F32.9 Major depressive disorder, single episode, unspecified; Z98.890 Other specified postprocedural states; Z91.09 Other allergy status, other than to drugs and biological substances; Z88.8 Allergy status to other drugs, medicaments and biological substances; Z79.899 Other long term (current) drug therapy; Z79.82 Long term (current) use of aspirin; Z95.1 Presence of aortocoronary bypass graft
CPT/HCPCS: 36415; 71046; 71275; 80053; 84484; 85025; 85610; 85730; 93005; 96374; 99285; J2270; J3490; Q9967